=== PATIENT | male | born 1995 | race Hispanic/Latino ===

== ENCOUNTER → 2016-06-20 | Outpatient (CLI) | payer BC | END | disposition home or self-care (01) | LOC: LAB 11:44 | PROVIDERS: ATTEND Nurse Practitioner Family | DX: L03.031 Cellulitis of right toe (principal) ==

== ENCOUNTER → 2016-06-26 | Outpatient (CLI) | payer BC | END | disposition home or self-care (01) | LOC: LAB.O 08:29 | PROVIDERS: ATTEND Nurse Practitioner Family | DX: E11.9 Type 2 diabetes mellitus without complications (principal) ==

== ENCOUNTER 2020-04-14 06:49 | Emergency (ER) | payer BC ==
[2020-04-14] MEDS ORDERED: CLINDAMYCIN IV 900MG 900 MG in PREMIX BAG 1 BAG IVPB ONE (07:19)
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
[2020-04-14 08:24] VITALS: TEMP 99
[2020-04-14 08:27] VITALS: BP 129/88; O2SAT 99
== END 2020-04-14 08:25 | disposition home or self-care (01) ==
LOC: ER 06:49
DX: L03.115 Cellulitis of right lower limb (principal); Z86.14 Personal history of Methicillin resistant Staphylococcus aureus infection; Z87.891 Personal history of nicotine dependence; Z87.828 Personal history of other (healed) physical injury and trauma
CPT/HCPCS: 36415; 73551; 80053; 85025; J3490